=== PATIENT | female | born 1985 | race Caucasian/White ===

== ENCOUNTER 2016-11-16 10:28 | Emergency (ER) | payer OTHER ==
[2016-11-16] MEDS ORDERED: IBUPROFEN 600 MG TABLET PO STA (12:35)
[2016-11-16] MEDS ORDERED: diphenhydrAMINE 25 MG CAPSULE PO STA (12:35)
[2016-11-16] MEDS ORDERED: oxyCOD/ACETAMIN 5 MG/325 MG TABLET PO STA (12:35)
[2016-11-16] MEDS ORDERED: diphenhydrAMINE 25 MG CAPSULE PO ONE (12:43)
[2016-11-16] MEDS ORDERED: oxyCOD/ACETAMIN 5 MG/325 MG TABLET PO ONE (12:43)
[2016-11-16] MEDS ORDERED: IBUPROFEN 600 MG TABLET PO ONE (12:43)
== END 2016-11-16 12:52 | disposition home or self-care (01) ==
DX: K04.7 Periapical abscess without sinus (principal); K02.9 Dental caries, unspecified
CPT/HCPCS: 99283; A9270

== ENCOUNTER 2017-07-02 09:17 | Emergency (ER) | payer OTHER ==
[2017-07-02 11:18] VITALS: BP 143/91
--- NOTE | 2017-07-02 12:06 | ED Physician Documentation ---
History of Present Illness - Stated complaint Stated Complaint: DENTAL PX, SWELLING, HOT - Chief complaint Chief Complaint: Heent - Additonal information Additional information: hx from pt 31 female known dental decay in pain swelling and warmth called her dentist who advised her to come to ER for antibiotics Review of Systems Constitutional: denies: Fever, Chills Throat: reports: Dental pain / toothache : denies: Now EGA (tubal) Immunocompromised: denies: Immunocompromised PD PAST MEDICAL HISTORY - Past Medical History Past Medical History: No Cardiovascular: None Respiratory: None Endocrine/Autoimmune: None - Past Surgical History Past Surgical History: Yes General: Cholecystectomy /[employer]: Tubal ligation - Present Medications Home Medications: Ambulatory Orders Medication Instructions Recorded Confirmed Clindamycin [Cleocin] 300 mg PO Q6H 7 Days capsule 07/02/17 - Allergies Allergies/Adverse Reactions: Allergies Allergy/AdvReac Type Severity Reaction Status Date / Time acetaminophen [From Vicodin] Allergy Hives Verified 07/02/17 09:40 amoxicillin Allergy Rash Verified 07/02/17 09:40 hydrocodone bitartrate * Allergy Hives Verified 07/02/17 09:40 [From Vicodin] Penicillins Allergy Rash Verified 07/02/17 09:40 - Social History Does the pt smoke?: No Smoking Status: Never smoker Does the pt drink ETOH?: No Does the pt have substance abuse?: No - Immunizations Immunizations are current?: Yes PD ED PE NORMAL - Vitals Vital signs reviewed: Yes - HEENT HEENT: Other (bottom left 2nd from back molar with decay and TTP but no focal abscess swelling, no trismus, no sublingual swelling) - Cardiac Cardiac: RRR - Respiratory Respiratory: No respiratory distress, Clear bilaterally Results - Vitals Vitals: Vital Signs - 24 hr 07/02/17 07/02/17 09:37 11:16 Temperature 36.9 C 36.3 C L Heart Rate 86 103 H Respiratory 16 18 Rate Blood Pressure 127/90 H 143/91 H O2 Saturation 100 100 Oxygen O2 Source Room air PD MEDICAL DECISION MAKING - ED course ED course: HR noted, pt in pain, no fever, do not think this represents sepsis/SIRS Departure - Departure Disposition: 01 Home, Self Care Clinical Impression: Infected dental caries Condition: Good Instructions: ED Abscess Dental Prescriptions: Clindamycin [Cleocin] 300 mg PO Q6H 7 Days capsule Comments: Please follow up with your dentist as scheduled Please get your blood pressure rechecked - it was high today
== END 2017-07-02 12:15 | disposition home or self-care (01) ==
LOC: ED 09:17
DX: K04.7 Periapical abscess without sinus (principal); K02.9 Dental caries, unspecified; R03.0 Elevated blood-pressure reading, without diagnosis of hypertension
CPT/HCPCS: 99283

== ENCOUNTER 2017-11-08 20:11 | Emergency (ER) | payer OTHER ==
--- NOTE | 2017-11-08 21:19 | ED Physician Documentation ---
History of Present Illness - Stated complaint Stated Complaint: MED REACTION - Chief complaint Chief Complaint: Allergic Rx - History obtained from History obtained from: Patient - History of Present Illness Timing: Today, How many hours ago (3) Pain level now: 0 - Additonal information Additional information: c/o generalized pruritis, onset 3 hours [employer] and still present in ED. symptom started within 1 hour of taking percocet (for dental pain). 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 - Present Medications Home Medications: Ambulatory Orders Medication Instructions Recorded Confirmed Clindamycin [Cleocin] 300 mg PO Q6H 7 Days capsule 07/02/17 Hydroxyzine Pamoate [Vistaril] 50 mg PO Q6HR PRN #14 capsule 11/08/17 predniSONE [Prednisone] 40 mg PO DAILY #6 tablet 11/08/17 traMADol [Ultram] 50 - 100 mg PO Q6H PRN #20 tablet 11/08/17 - Allergies Allergies/Adverse Reactions: Allergies Allergy/AdvReac Type Severity Reaction Status Date / Time acetaminophen [From Vicodin] Allergy Hives Verified 07/02/17 09:40 amoxicillin Allergy Rash Verified 07/02/17 09:40 hydrocodone bitartrate * Allergy Hives Verified 07/02/17 09:40 [From Vicodin] Penicillins Allergy Rash Verified 07/02/17 09:40 - Social History Does the pt smoke?: No Smoking Status: Never smoker Does the pt drink ETOH?: No Does the pt have substance abuse?: No - Immunizations Immunizations are current?: Yes PD ED PE NORMAL - Vitals Vital signs reviewed: Yes - General General: Alert and oriented X 3, No acute distress, Well developed/nourished - HEENT HEENT: Pharynx benign (no orophayngeal swelling) - Respiratory Respiratory: No respiratory distress, Clear bilaterally - Derm Derm: No rash Results - Vitals Vitals: Oxygen O2 Source Room air PD MEDICAL DECISION MAKING - ED course Complexity details: re-evaluated patient, considered differential, d/w patient Departure - Departure Disposition: 01 Home, Self Care Clinical Impression: Medication reaction Condition: Good Instructions: ED Drug React Allergic Follow-Up: Mario Vargas MD [Primary Care Provider] - Prescriptions: Hydroxyzine Pamoate [Vistaril] 50 mg PO Q6HR PRN #14 capsule PRN Reason: Itching predniSONE [Prednisone] 40 mg PO DAILY #6 tablet traMADol [Ultram] 50 - 100 mg PO Q6H PRN #20 tablet PRN Reason: Pain Discharge Date/Time: 11/08/17 23:45
[2017-11-08] MEDS ORDERED: predniSONE 20 MG TABLET PO STA (21:42)
[2017-11-08] MEDS ORDERED: hydrOXYzine PAMOATE 25 MG CAPSULE PO STA (21:42)
[2017-11-08] MEDS ORDERED: traMADol 50 MG TABLET PO STA (23:28)
[2017-11-08 23:40] VITALS: BP 121/77
== END 2017-11-08 23:45 | disposition home or self-care (01) ==
LOC: ED 20:11
DX: L29.9 Pruritus, unspecified (principal); T50.995A Adverse effect of other drugs, medicaments and biological substances, initial encounter
CPT/HCPCS: 99283; A9270; J7512